=== PATIENT | male | born 2000 | race Caucasian/White ===

== ENCOUNTER 2023-11-26 14:22 | Outpatient (AMB) | payer OTHER, SELFPAY ==
--- NOTE | 2023-11-26 14:23 | A.OFFVIS_ITS ---
Vital Signs 11/26/23 14:27 Height 6 ft 3 in Weight 238 lb 2 oz BMI 29.8 BP 129/60 Blood Pressure Location Rt brachial Position Sitting Pulse 57 Intake Visit Reasons: Kari anal fistula Intake Note: This patient presents for Kari anal fistula. 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 He says that about a year ago he had swelling and discharge from his sacrococcygeal area. He said that it was very painful at that time. He went to an urgent care center and he was told he had a pilonidal abscess. He says he did not have any procedure at that time. He says he was on antibiotics and was told to see a surgeon. He says that he was never able to see a surgeon since then but recently has been noticing worsening of the area again with discharge. [facility] Medical History (Updated 11/26/23 @ 14:44 by Spencer Ramirez MD) Sacrococcygeal pilonidal cyst Social History Alcohol intake: current Alcohol intake frequency: holidays/special occasions only Patient Tobacco Use Status: Never used Tobacco Review of Systems Const Denies chills and Denies fever(s) Card Denies chest pain, Denies dyspnea and Denies dyspnea on exertion Resp Denies cough, Denies dyspnea and Denies dyspnea on exertion GI Denies hematochezia and Denies change in bowel habits Denies hematuria and Denies difficulty urinating Musc Denies back pain and Denies limited range of motion Neuro Denies focal weakness and Denies convulsions Psych Denies depression and Denies mood swings Physical Exam Vital Signs: Last Vital Signs Pulse 57 11/26/23 14:27 BP 129/60 11/26/23 14:27 BMI result Body Mass Index 29.8 Const General: comfortable and no acute distress Orientation/consciousness: patient oriented x3 Neck Neck: Yes no lymphadenopathy Resp Auscultation: clear to auscultation bilaterally Cardio Rhythm: regular rhythm GI Palpation (GI): Soft to palpation, nontender and no guarding Back/Spine/Pelvis Other: Sacrococcygeal area - multiple midline pits within the gluteal cleft, scanty discharge, no induration or fluctuance; findings consistent with a pilonidal cyst Neuro General: patient oriented x3 Assessment & Plan Assessment & Plan (1) Sacrococcygeal pilonidal cyst: Code(s): L05.91 - Pilonidal cyst without abscess Category: Medical Plan: He has had this area of recurrent drainage and pain in the sacrococcygeal region. Findings are consistent with a pilonidal cyst. I explained to him the option of proceeding with excision of this pilonidal cyst. I reviewed the technique of this procedure. I explained to him the risks including but not limited to bleeding, infections, postop pain, poor healing, recurrence, as well as the benefits and alternatives He wants to proceed. I also explained to him what to expect postoperatively. Coding Level of Care Code New Pt Level 3 (99538) Diagnoses Sacrococcygeal pilonidal cyst L05.91
[2023-11-26 14:27] VITALS: BP 129/60; PULSE 57; BMI 29.8
== END 2023-11-26 15:02 | disposition home or self-care (01) ==
PROVIDERS: PCP Pediatrics Adolescent Medicine; Visit Provider Surgery
DX: L05.91 Pilonidal cyst without abscess (principal)
CPT/HCPCS: 99203

== ENCOUNTER → 2023-11-26 14:22 | Outpatient (BNVA) | payer OTHER, SELFPAY | PROVIDERS: PCP Pediatrics Adolescent Medicine; Visit Provider Surgery ==

== ENCOUNTER 2023-12-11 07:58 | Day surgery (SDC) | payer OTHER, SELFPAY ==
--- NOTE | 2023-12-10 10:14 | HO.ANESPROP2 ---
Documented by User: Jasmina Mcclain NP 12/10/23 10:15 HPI - Anesthesia Eval Consult details Narrative: 23yo M for Excision Pilonidal Cyst sacrococcygeal area PMFSH Active Problems Active Problems: All Active Problems Sacrococcygeal pilonidal cyst (Acute) Past Medical History Medical History Sacrococcygeal pilonidal cyst Surgical History Surgical History [place] teeth extracted Social History Social History Alcohol intake: current Alcohol intake frequency: holidays/special occasions only Patient Tobacco Use Status: Never used Tobacco Have you been hit, kicked, punched, or otherwise hurt by someone within the past year? If so, by whom?: No Are you DNR?: No Advance Directives: No Advance Directives Information Provided: Yes Recently lost weight without trying: No Nutrition Risks: No Nutritional Risk Meds Allergies Allergy/AdvReac Type Severity Reaction Status Date / Time No Known Allergies Allergy Verified 11/26/23 14:23 Home Medications ?Medication ?Instructions ?Recorded ?Confirmed ?Last Taken ?Type No Known Home Meds 11/26/23 12/11/23 Unknown History Assessment and Plan Assessment Anesthesia Assessment: Chart Reviewed Documented by User: Ana Deleon MD 12/11/23 08:59 PMFSH Past Medical History Medical History Sacrococcygeal pilonidal cyst Family History Family history of problems with anesthesia: No Surgical History Surgical History [place] teeth extracted History of Problems with Anesthesia: No Social History Social History Alcohol intake: current Alcohol intake frequency: holidays/special occasions only Patient Tobacco Use Status: Never used Tobacco Have you been hit, kicked, punched, or otherwise hurt by someone within the past year? If so, by whom?: No Are you DNR?: No Advance Directives: No Advance Directives Information Provided: Yes Recently lost weight without trying: No Nutrition Risks: No Nutritional Risk Meds Allergies Allergy/AdvReac Type Severity Reaction Status Date / Time No Known Allergies Allergy Verified 11/26/23 14:23 Home Medications ?Medication ?Instructions ?Recorded ?Confirmed ?Last Taken ?Type No Known Home Meds 11/26/23 12/11/23 Unknown History Exam Height,Weight and Vital Signs: Height 6 ft 3 in Weight 107.91 kg Vital Signs Temp Pulse Resp BP Pulse Ox O2 Del Method 12/11/23 08:02 97 F 56 18 130/54 L 98 Room Air Airway Mallampati Class: II TM Dist: >3cm Neck ROM: Full Loose/Missing/Broken Teeth: Yes ([place] teeth extracted. Denies broken or loose teeth) Heart: RRR Lungs: CTAB Assessment and Plan Assessment Anesthesia Assessment: Anesthesia Plan Discussed and Chart Reviewed Final Anesthetic Review Family History of Problems with Anesthesia: No History of Problems with Anesthesia: No NPO: Yes ASA Class: I Final Preanesthetic Review: No Changes in Pt Med Stat, Meds/Allgs Chart Reviewed, Consent Obtained/Reviewed and Anes Risks/Benef Reviewed Patient Risk: Low Procedure Risk: Low Assessment/Block/Sedation in SS: Assess/Block/Sedation-SS Anesthetic Plan Anesthetic Plan: GA Disposition: Standard PACU
[2023-12-11 07:56] VITALS: BMI 29.8
[2023-12-11 08:02] VITALS: BP 130/54; PULSE 56; RESP 18; TEMP 36.1; O2SAT 98; BMI 29.7
[2023-12-11] MEDS: Lactated Ringers 1,000 ML 100 ML IVCONT (08:38)
--- NOTE | 2023-12-11 09:40 | MHC.SHP ---
Pre-Procedural Eval Section A - 24 Hr Update-Section A only Date of Service: 12/11/23 The patient is an INPATIENT: No Changes since office visit: Yes Cold of Flu in the past 2 weeks, Yes New Medical Problems, Yes Changes in Medication and Yes Patient answered all questions The patient has been examined within 24 hours of the surgical procedure. The History & Physical has been completed within 30 days and I have reviewed it.: Yes Section B - Complete if H&P > 30 days Chief Complaint: Pilonidal cyst without abscess Allergies: Allergies Allergy/AdvReac Type Severity Reaction Status Date / Time No Known Allergies Allergy Verified 11/26/23 14:23 Plan I have reviewed the history and physical and performed a pertinent physical examination on my patient. No changes have occurred unless specified. Time Spent With Patient Time: Total time managing care of this patient today ____ minutes.
--- NOTE | 2023-12-11 10:53 | P.OP_ITS ---
Operative Note Operative Note Date of Service: 12/11/23 Narrative: Preop diagnosis: Pilonidal cyst, sacrococcygeal area Postop diagnosis: The same Procedure: Excision pilonidal cyst, sacrococcygeal area Surgeon: Spencer Ramirez MD floor covering printer assistant: FLORENTIN Chun The patient is a 23 year old male with a recurrent area of pain, swelling and drainage in the sacrococcygeal area consistent with a pilonidal cyst. Examination showed multiple midline pits within the gluteal cleft. He understood the technique of excision under anesthesia. He was aware of the risks, benefits, and alternatives He was brought to the operating room. He was placed in prone position under ge neral anesthesia via endotracheal tube. The buttocks were retracted with wide tape laterally. The sacrococcygeal area was prepped and draped in the usual sterile fashion. A surgical time-out was done. The patient received cefazolin 2 g IV preoperatively Again there was note of multiple midline pits within the gluteal cleft superiorly. I my planned line of incision and infiltrated the area with lidocaine 1%. I made an elliptical incision on the skin surrounding this multiple midline pits with a blade 15. This carried down with electrocautery through the full-thickness of the skin and subcutaneous fat. I excised this entire area of indurated and diseased subcutaneous fat. I made sure that all fistulous tracts within the subcutaneous fat were included with the specimen. The area excised was 9 cm long by about 3.5 cm wide I undermined both sides to create subcutaneous flaps and allow closure without tension I cauterized oozing areas. I copiously irrigated. Once hemostasis was confirmed, I reapposed deep subcutaneous tissue with Polysorb 3-0 simple interrupted sutures. Skin closure was then achieved with nylon 3-0 simple interrupted sutures a lternating with vertical mattress sutures The area was then infiltrated with a Marcaine 0.5% for postop analgesia. Dressings were applied. The procedure was completed The patient tolerated the procedure well. There were no immediate complications. Initial and final counts of sponges and instruments were correct. Estimated blood loss was about 25 cc. The patient was extubated without difficulty and transferred to the recovery room with stable vital signs.
[2023-12-11 11:11] VITALS: BP 127/75; PULSE 60; RESP 14; TEMP 36.3; O2SAT 96
[2023-12-11 11:16] VITALS: BP 118/85; PULSE 46; RESP 15; O2SAT 97
[2023-12-11 11:21] VITALS: BP 119/77; PULSE 45; RESP 16; O2SAT 97
[2023-12-11 11:26] VITALS: BP 128/73; PULSE 49; RESP 16; O2SAT 97
[2023-12-11] MEDS: oxyCODONE HCl Immed Release 5 MG TABLET PO (11:33)
[2023-12-11 11:41] VITALS: BP 132/81; PULSE 47; RESP 16; TEMP 36.3; O2SAT 97
== END 2023-12-11 12:26 | disposition home or self-care (01) ==
PROVIDERS: Visit Provider Surgery
PROC: (CPT 11771; principal; 2023-12-11 10:20)
DX: L05.01 Pilonidal cyst with abscess (principal)
CPT/HCPCS: 11771; 88304; J0131; J0690; J1100; J1885; J2003; J2250; J2405; J2704; J2795; J3010

== ENCOUNTER → 2023-12-11 07:58 | Outpatient (BNV) | payer OTHER, SELFPAY | PROVIDERS: Visit Provider Surgery | DX: L05.91 Pilonidal cyst without abscess (principal) | CPT/HCPCS: 11771 ==

== ENCOUNTER 2023-12-24 10:41 | Outpatient (AMB) | payer OTHER, SELFPAY ==
--- NOTE | 2023-12-24 10:52 | A.OFFVIS_ITS ---
Intake Visit Reasons: S/P exc. pilonidal cyst sacrococcygeal area Intake Note: This patient presents for post-op assessment status post Excision pilonidal cyst, sacrococcygeal area. Pt c/o; reports no complaints at this time pertaining to surgery. 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 pilonidal cyst sacrococcygeal area: Details: He underwent excision of pilonidal cyst from the sacrococcygeal area last 12/11/2023. He tolerated procedure well. He says he is doing well at this time and denies significant pain or other problems. [facility] Medical History Sacrococcygeal pilonidal cyst Surgical History History of excision of pilonidal cyst (~12/11/23) [place] teeth extracted Social History Alcohol intake: current Alcohol intake frequency: holidays/special occasions only Patient Tobacco Use Status: Never used Tobacco Review of Systems Const Denies chills and Denies fever(s) Physical Exam Const General: comfortable and no acute distress Resp Effort & Inspection: normal respiratory effort Back/Spine/Pelvis Other: Excision site healing well, not infected, no induration, no pus, sutures in place Assessment & Plan Assessment & Plan (1) Sacrococcygeal pilonidal cyst: Code(s): L05.91 - Pilonidal cyst without abscess Category: Medical Plan: Status post excision. His incision is healing well. I removed all his sutures. I applied Steri-Strips I told him to come back in about a month for another postop visit His path report shows findings consistent with a pilonidal cyst. I instructed him on good wound care. Coding Level of Care Code Global (16059) Diagnoses Sacrococcygeal pilonidal cyst L05.91
== END 2023-12-24 11:07 | disposition home or self-care (01) ==
PROVIDERS: PCP Pediatrics Adolescent Medicine; Visit Provider Surgery
DX: L05.91 Pilonidal cyst without abscess (principal)
CPT/HCPCS: 99024

== ENCOUNTER → 2023-12-24 10:41 | Outpatient (BNVA) | payer OTHER, SELFPAY | PROVIDERS: PCP Pediatrics Adolescent Medicine; Visit Provider Surgery ==